=== PATIENT | male | born 1950 | race Two or more races ===

== ENCOUNTER 2025-09-17 11:20 | Emergency (ER) | payer MEDICARE ==
[~2025-09-17] VITALS: Ht 177.8 cm; Wt 83.9 kg
[2025-09-17 11:31] VITALS: BP 143/84; TEMP 98.2; O2SAT 97
[2025-09-17] MEDS ORDERED: CEFD300C3 PO (12:43)
== END 2025-09-17 12:58 | disposition home or self-care (01) ==
LOC: ER 11:29
DX: T83.010A Breakdown (mechanical) of cystostomy catheter, initial encounter (principal); I10 Essential (primary) hypertension; Z85.46 Personal history of malignant neoplasm of prostate; Z46.6 Encounter for fitting and adjustment of urinary device; Y73.2 Prosthetic and other implants, materials and accessory gastroenterology and urology devices associated with adverse incidents